=== PATIENT | male | born 1985 | race Caucasian/White ===

== ENCOUNTER 2016-08-09 19:36 | Emergency (ER) | payer MEDICAID ==
[~2016-08-09] VITALS: Ht 175.3 cm; Wt 77.1 kg
[2016-08-09 19:43] VITALS: BP 134/84
--- NOTE | 2016-08-09 19:46 | NUR ---
AMBULATED TO ER BED 2
--- NOTE | 2016-08-09 19:57 | NUR ---
PATIENT PRESENTS TO ED WITH LOWER BACK PAIN SINCE YESTERDAY . PT STATES HISTORY OF BRAIN SURGERY X7 SINCE AGE 11 YEARS OLD . DENIES N/V/D; SKIN IS PINK/WARM/DRY; AAOX4 WITH EVEN AND STEADY GAIT; LUNGS CLEAR BL; HR EVEN AND REGULAR; PT DENIES ANY FEVER, CP, SOB, OR COUGH AT THIS TIME; PATIENT STATES PAIN OF 10/10 AT THIS TIME; VSS; PATIENT POSITIONED FOR COMFORT; HOB ELEVATED; BEDRAILS UP X2; BED DOWN. ER MD MADE AWARE OF PT STATUS. SISTER AT BEDSIDE.
[2016-08-09] MEDS ORDERED: KETOROLAC 30 MG/ML VIAL IM ONE (20:15)
[2016-08-09] MEDS ORDERED: HYDROcodone/APAP 5/325 MG 1 TAB TAB PO ONE (20:15)
[2016-08-09] MEDS ORDERED: DIAZEPAM 5 MG TAB PO ONE (20:15)
[2016-08-09 20:51] VITALS: BP 134/84
--- NOTE | 2016-08-09 20:51 | NUR ---
Patient discharged with v/s stable. Written and verbal after care instructions given and explained. Patient alert, oriented and verbalized understanding of instructions. Ambulatory with steady gait. All questions addressed prior to discharge. ID band removed. Patient advised to follow up with PMD. Rx of VALIUM, NORCO, AND NAPROSYN given. Patient educated on indication of medication including possible reaction and side effects. Opportunity to ask questions provided and answered. PT VERBALIZED THAT FRIEND WOULD BE DRIVING HIM HOME FROM HOSPITAL AT THIS TIME.
== END 2016-08-09 20:51 | disposition home or self-care (01) ==
LOC: MED 19:39
DX: S39.012A Strain of muscle, fascia and tendon of lower back, initial encounter (principal); F17.210 Nicotine dependence, cigarettes, uncomplicated; Z98.890 Other specified postprocedural states; X50.0XXA Overexertion from strenuous movement or load, initial encounter; Y93.89 Activity, other specified; Y92.89 Other specified places as the place of occurrence of the external cause; Y99.8 Other external cause status
CPT/HCPCS: 96372; 99283; J1885

== ENCOUNTER 2016-08-21 21:50 | Emergency (ER) | payer MEDICAID ==
[~2016-08-21] VITALS: Ht 175.3 cm; Wt 77.1 kg
[2016-08-21 21:55] VITALS: BP 129/77
--- NOTE | 2016-08-21 22:57 | NUR ---
PT TAKEN TO BED 2
--- NOTE | 2016-08-21 23:03 | NUR ---
Dr. Gómez evaluating patient at bedside.
[2016-08-21] MEDS ORDERED: MORPHINE SULFATE 10 MG/ML SYR IM ONE (23:05)
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
[2016-08-22] MEDS ORDERED: HYDROmorphone 1 MG/ML AMP IM ONE (00:10)
--- NOTE | 2016-08-22 00:52 | NUR ---
Patient discharged with v/s stable. Written and verbal after care instructions given and explained. Patient alert, oriented and verbalized understanding of instructions. Ambulatory with steady gait. All questions addressed prior to discharge. ID band removed. Patient advised to follow up with PMD. Rx of NAPROSYN 500 MG given. Patient educated on indication of medication including possible reaction and side effects. Opportunity to ask questions provided and answered.
[2016-08-22 00:53] VITALS: BP 125/71
== END 2016-08-22 00:52 | disposition home or self-care (01) ==
LOC: MED 21:50
DX: S39.012A Strain of muscle, fascia and tendon of lower back, initial encounter (principal); R03.0 Elevated blood-pressure reading, without diagnosis of hypertension; E11.9 Type 2 diabetes mellitus without complications; X50.0XXA Overexertion from strenuous movement or load, initial encounter; Y93.89 Activity, other specified; Y92.89 Other specified places as the place of occurrence of the external cause; Y99.8 Other external cause status
CPT/HCPCS: 96372; 99284; J1170; J2270

== ENCOUNTER 2017-02-23 23:43 | Emergency (ER) | payer MEDICAID ==
[~2017-02-23] VITALS: Ht 175.3 cm; Wt 73.0 kg
[2017-02-23 23:56] VITALS: BP 135/84
--- NOTE | 2017-02-24 00:13 | NUR ---
Dr. Layton evaluating patient
[2017-02-24] MEDS ORDERED: CYCLOBENZAPRINE 10 MG TAB PO ONE (00:15)
[2017-02-24] MEDS ORDERED: KETOROLAC 30 MG/ML VIAL IM ONE (00:15)
[2017-02-24] MEDS ORDERED: HYDROcodone/APAP 5/325 MG 1 TAB TAB PO ONE ×2 (00:50→01:35)
[2017-02-24 01:45] VITALS: BP 127/73
--- NOTE | 2017-02-24 01:45 | NUR ---
Patient discharged with v/s stable. Written and verbal after care instructions given and explained. Patient alert, oriented and verbalized understanding of instructions. Ambulatory with steady gait. All questions addressed prior to discharge. ID band removed. Patient advised to follow up with PMD. Rx of Flexeril and Naprosyn given. Patient educated on indication of medication including possible reaction and side effects. Opportunity to ask questions provided and answered.
== END 2017-02-24 01:45 | disposition home or self-care (01) ==
LOC: MED 23:43
DX: M54.5 Low back pain (principal); M62.830 Muscle spasm of back
CPT/HCPCS: 96372; 99284; J1885

== ENCOUNTER 2018-10-30 01:35 | Emergency (ER) | payer MEDICAID, OTHER ==
[~2018-10-30] VITALS: Ht 175.3 cm; Wt 68.0 kg
[2018-10-30 01:42] VITALS: BP 127/81
--- NOTE | 2018-10-30 01:51 | NUR ---
PT AMBULATED BACK TO LOBBYBETTE
--- NOTE | 2018-10-30 02:45 | NUR ---
PT AMBULATED TO ROOM 11.
--- NOTE | 2018-10-30 02:48 | NUR ---
32 Y/O M PRESENTED TO ED WITH C/O PAINFUL CYST ON L UPPER POSTERIOR SHOULDER. PER PT HAS HAD CYST FOR 6-7 MONTHS BUT YESTERDAY MORNING HAD WORSENING PAIN. CYST RUPTURED THIS MORNING, YELLOW PUS DISCHARGE. 7/10 PAIN, THROBBING AND CONTINUOUS. ERYTHEMA NOTED TO L UPPER SHOULDER. SCANT PUS NOTED. ERMD NOTIFIED. WILL CONTINUE TO MONITOR.
--- NOTE | 2018-10-30 03:30 | NUR ---
PT EXPERIENCING 7/10 PAIN TO L SHOULDER. DR CARTER MADE AWARE.
[2018-10-30] MEDS ORDERED: KETOROLAC 60 MG/2 ML VIAL IM ONE (03:40)
[2018-10-30 03:46] VITALS: BP 121/82
--- NOTE | 2018-10-30 04:32 | NUR ---
DR. CARTER, BEDSIDE EVALUATING PT
--- NOTE | 2018-10-30 04:45 | NUR ---
Patient discharged with v/s stable. Written and verbal after care instructions given and explained. Patient alert, oriented and verbalized understanding of instructions. Ambulatory with steady gait. All questions addressed prior to discharge. ID band removed. Patient advised to follow up with PMD. Rx of Bactrim, [place], Kelfex, Motrin, and Prednisone given. Patient educated on indication of medication including possible reaction and side effects. Opportunity to ask questions provided and answered.
== END 2018-10-30 04:45 | disposition home or self-care (01) ==
LOC: MED 01:35
DX: L02.212 Cutaneous abscess of back [any part, except buttock and flank] (principal); L03.312 Cellulitis of back [any part except buttock and flank]; F17.200 Nicotine dependence, unspecified, uncomplicated
CPT/HCPCS: 99283; J1885

== ENCOUNTER 2018-11-09 00:10 | Emergency (ER) | payer OTHER ==
[~2018-11-09] VITALS: Ht 175.3 cm; Wt 74.8 kg
[2018-11-09 00:14] VITALS: BP 120/77
--- NOTE | 2018-11-09 00:18 | NUR ---
PT TAKEN TO BED 3
[2018-11-09] MEDS ORDERED: KETOROLAC 30 MG/ML VIAL IM ONE (01:00)
--- NOTE | 2018-11-09 01:15 | NUR ---
PT REFUSED TORADOL BECAUSE IT DOESN'T WORK FOR HIS PAIN.
[2018-11-09] MEDS ORDERED: fentaNYL 0.05 MG/ML VIAL NS ONE (01:50)
[2018-11-09 02:30] VITALS: BP 118/65
--- NOTE | 2018-11-09 02:30 | NUR ---
Patient discharged with v/s stable. Written and verbal after care instructions given and explained. Patient alert, oriented and verbalized understanding of instructions. Ambulatory with steady gait. All questions addressed prior to discharge. ID band removed. Patient advised to follow up with PMD. Rx of Fioricet given. Patient educated on indication of medication including possible reaction and side effects. Opportunity to ask questions provided and answered.
== END 2018-11-09 02:30 | disposition home or self-care (01) ==
LOC: MED 00:10
DX: R51 Headache (principal); G43.909 Migraine, unspecified, not intractable, without status migrainosus; F17.200 Nicotine dependence, unspecified, uncomplicated; Z48.01 Encounter for change or removal of surgical wound dressing; Z98.890 Other specified postprocedural states
CPT/HCPCS: 99283; J3010

== ENCOUNTER 2019-07-07 23:08 | Emergency (ER) | payer OTHER ==
[~2019-07-07] VITALS: Ht 175.3 cm; Wt 77.1 kg
[2019-07-07 23:20] VITALS: BP 129/81
== END 2019-07-07 23:42 | disposition home or self-care (01) ==
LOC: MED 23:08
DX: K08.89 Other specified disorders of teeth and supporting structures (principal)
CPT/HCPCS: 99283

== ENCOUNTER 2019-08-08 07:28 | Emergency (ER) | payer OTHER ==
[~2019-08-08] VITALS: Ht 180.3 cm; Wt 81.6 kg
[2019-08-08 07:38] VITALS: BP 137/72
--- NOTE | 2019-08-08 07:38 | NUR ---
Patient ambulated to bed 4. RN evaluating patient at bedside.
--- NOTE | 2019-08-08 07:41 | NUR ---
33 Y/O M C/C RIGHT EYE PAIN RADIATING TO RIGHT JAW X 3 DAYS. PER PT IT HAS PROGRESSIVELY GETTING WORSE, 8/10 THROBBING, PRESSURE PAIN. HAS USED ORAL GEL WITH NO RELIEF. PT NKA. 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 NO RX. NO N/V/D. SIDE RAIL X1. NEURO WDL. PUPILS PERRLA.
--- NOTE | 2019-08-08 07:51 | NUR ---
Dr. Beauchamp is evaluating the patient at bedside.
[2019-08-08] MEDS ORDERED: KETOROLAC 60 MG/2 ML VIAL IM ONE (08:00)
[2019-08-08 08:22] VITALS: BP 137/72
--- NOTE | 2019-08-08 08:22 | NUR ---
Patient discharged with v/s stable. Written and verbal after care instructions given and explained. Patient alert, oriented and verbalized understanding of instructions. Ambulatory with steady gait. All questions addressed prior to discharge. ID band removed. Patient advised to follow up with PMD. Rx of MOTRIN,NORCO given. Patient educated on indication of medication including possible reaction and side effects. Opportunity to ask questions provided and answered.
== END 2019-08-08 08:22 | disposition home or self-care (01) ==
LOC: MED 07:28
DX: K08.89 Other specified disorders of teeth and supporting structures (principal); F17.200 Nicotine dependence, unspecified, uncomplicated; E11.9 Type 2 diabetes mellitus without complications
CPT/HCPCS: 96372; 99283; J1885

== ENCOUNTER 2019-11-27 22:44 | Emergency (ER) | payer OTHER ==
[~2019-11-27] VITALS: Ht 175.3 cm; Wt 77.1 kg
[2019-11-27 22:48] VITALS: BP 114/78
--- NOTE | 2019-11-27 22:58 | NUR ---
PT AMBULATED TO BED 7 WITH STEADY GAIT
[2019-11-27] MEDS ORDERED: KETOROLAC 30 MG/ML VIAL IM ONE (23:10)
[2019-11-27] MEDS ORDERED: PENICILLIN V POTASSIUM 250 MG TAB PO ONE (23:10)
--- NOTE | 2019-11-27 23:15 | NUR ---
33 Y/O MALE PRESENTED TO ED C/O R JAW PAIN X 3 DAYS. PT STATES PAIN AND SWELLING IN R SIDE OF JAW. PT STATES HE TOOK 800MG IBUPROFEN AT 2230 W/ NO RELIFE. PT HAS BEEN TRYING TO GET INTO THE DR. BUT CANNOT GET INTO AN APPOINTMENT UNTIL 12/12 SO HE WAS TOLD TO COME TO THE ER FOR THE PAIN AND SWELLING. OBSERVED SWELLING ON R JAW. PT DENIES SOB, N/V/D/F. PT SITTING IN CHAIR. NAD NOTED, VSS. PMH: BRAIN SURGERY MEHDI
[2019-11-27] MEDS ORDERED: IBUPROFEN 800 MG TAB PO ONE (23:40)
[2019-11-27 23:45] VITALS: BP 114/78
--- NOTE | 2019-11-27 23:45 | NUR ---
Patient discharged with v/s stable. Written and verbal after care instructions given and explained. Patient alert, oriented and verbalized understanding of instructions. Ambulatory with steady gait. All questions addressed prior to discharge. ID band removed. Patient advised to follow up with PMD. Rx of IBUPROFEN 600MG AND PENICILLIN given. Patient educated on indication of medication including possible reaction and side effects. Opportunity to ask questions provided and answered.
== END 2019-11-27 23:45 | disposition home or self-care (01) ==
LOC: MED 22:44
DX: J02.0 Streptococcal pharyngitis (principal); E11.9 Type 2 diabetes mellitus without complications; Z98.890 Other specified postprocedural states
CPT/HCPCS: 99283; J1885

== ENCOUNTER 2020-05-01 15:43 | Emergency (ER) | payer OTHER, SELFPAY ==
[~2020-05-01] VITALS: Ht 175.3 cm; Wt 74.8 kg
[2020-05-01 16:01] VITALS: BP 110/77
--- NOTE | 2020-05-01 16:11 | NUR ---
PATIENT PRESENTS TO ED WITH SORE THROAT X2D. PT STATES THIS HAPPENS EVERY YEAR WITH HIS THROAT AND THAT HE JUST WANTS TO BE COVID TESTED. DENIES N/V/D; SKIN IS PINK/WARM/DRY; AAOX4 WITH EVEN AND STEADY GAIT; LUNGS CLEAR BL; HR EVEN AND REGULAR; PT DENIES ANY FEVER, CP, SOB, OR COUGH AT THIS TIME; PATIENT STATES PAIN OF 0/10 AT THIS TIME; VSS; PATIENT POSITIONED FOR COMFORT; HOB ELEVATED; BEDRAILS UP X2; BED DOWN. ER MD MADE AWARE OF PT STATUS.
[2020-05-01 16:40] VITALS: BP 110/77
--- NOTE | 2020-05-01 16:40 | NUR ---
Patient discharged with v/s stable. Written and verbal after care instructions given and explained. Patient verbalized understanding. Ambulatory with steady gait. All questions addressed prior to discharge. Advised to follow up with PMD.
== END 2020-05-01 16:40 | disposition home or self-care (01) ==
LOC: MED 15:43
DX: B34.9 Viral infection, unspecified (principal); Z20.828 Contact with and (suspected) exposure to other viral communicable diseases; E11.9 Type 2 diabetes mellitus without complications; F17.210 Nicotine dependence, cigarettes, uncomplicated
CPT/HCPCS: 99283; U0003

== ENCOUNTER 2020-08-16 06:00 | Emergency (ER) | payer OTHER, SELFPAY ==
[~2020-08-16] VITALS: Ht 177.8 cm; Wt 74.8 kg
[2020-08-16 06:05] VITALS: BP 120/79
--- NOTE | 2020-08-16 06:05 | NUR ---
TO BED AMBULATORY
--- NOTE | 2020-08-16 06:26 | NUR ---
Dr. Cannon examining patient.
--- NOTE | 2020-08-16 06:29 | NUR ---
PT IS 34 Y MALE PRESENTS TO THE ED WITH LEFT SHARP EAR PAIN OF 7/10 THAT RADIATES TO JAW, EYE, AND LEFT SIDE OF THE HEAD. LITTLE REDNESS IN THE TYMPANIC MEMBRANE NOTED SURGICAL HX: 7 BRAIN SURGERIES NKA
--- NOTE | 2020-08-16 06:40 | NUR ---
PT STATED THAT HE TOOK IBUPROFEN (OTC) AND HAS NO PAIN RELIEF
[2020-08-16] MEDS ORDERED: ACET-9527 PO (07:03)
[2020-08-16] MEDS ORDERED: OFLO5SOL27 LEFT EAR (07:03)
--- NOTE | 2020-08-16 07:08 | NUR ---
REPORT GIVEN TO MONET CLEARY FOR CONTINUITY OF CARE
[2020-08-16 07:22] VITALS: BP 120/79
--- NOTE | 2020-08-16 07:23 | NUR ---
Patient discharged with v/s stable. Written and verbal after care instructions given and explained. Patient alert, oriented and verbalized understanding of instructions. Ambulatory with steady gait. All questions addressed prior to discharge. ID band removed. Patient advised to follow up with PMD. Rx of NORCO, FLOXIN given. Patient educated on indication of medication including possible reaction and side effects. Opportunity to ask questions provided and answered.
== END 2020-08-16 07:23 | disposition home or self-care (01) ==
LOC: MED 06:00
DX: H60.8X2 Other otitis externa, left ear (principal); E11.9 Type 2 diabetes mellitus without complications; Z79.899 Other long term (current) drug therapy
CPT/HCPCS: 99283

== ENCOUNTER 2020-09-29 05:14 | Emergency (ER) | payer OTHER ==
[~2020-09-29] VITALS: Ht 177.8 cm; Wt 77.1 kg
[~2020-09-29 05:14] MED LIST: ACET-9527 PO; OFLO5SOL27 LEFT EAR
[2020-09-29 05:19] VITALS: BP 130/74
--- NOTE | 2020-09-29 05:28 | NUR ---
PT AMBULATED TO BED 05, STEADY GAIT
--- NOTE | 2020-09-29 05:44 | NUR ---
PATIENT BIB SELF FOR C/O 12/15 LEFT EAR PAIN X 6 HOURS. A & O X4. PATIENT STATES THE PAIN RADIATES TO LEFT EYE AND LEFT JAW, STATING "IT MAKES IT HARD TO EAT." PATIENT REPORTS TAKING IBUPROFEN AT HOME WITH NO RELIEF. NO NOTED SWELLING TO THE FACE. LEFT EAR NOTED WITH REDNESS AT SITE. PATIENT DENIES SOB, CP, FEVER, CHILLS. SEE COMPLETE ASSESSMENT FOR FURTHER DETAILS. MED HX: DENIES ALLERGIES: NKA
--- NOTE | 2020-09-29 05:48 | NUR ---
ERMD AT BEDSIDE.
[2020-09-29] MEDS ORDERED: FLONAS NS (05:56)
[2020-09-29] MEDS ORDERED: METH4TAB1 PO (05:56)
[2020-09-29 06:15] VITALS: BP 130/74
--- NOTE | 2020-09-29 06:15 | NUR ---
Patient discharged with v/s stable. Written and verbal after care instructions given and explained. Patient alert, oriented and verbalized understanding of instructions. Ambulatory with steady gait. All questions addressed prior to discharge. ID band removed. Patient advised to follow up with PMD. Rx of FLUTICASONE PROPIONATE AND METHYLPREDNISOLONE given. Patient educated on indication of medication including possible reaction and side effects. Opportunity to ask questions provided and answered.
== END 2020-09-29 06:15 | disposition home or self-care (01) ==
LOC: MED 05:14
DX: H69.92 Unspecified Eustachian tube disorder, left ear (principal); E11.9 Type 2 diabetes mellitus without complications; F17.210 Nicotine dependence, cigarettes, uncomplicated; Z79.899 Other long term (current) drug therapy
CPT/HCPCS: 99283

== ENCOUNTER 2020-12-26 12:41 | Emergency (ER) | payer OTHER ==
[~2020-12-26] VITALS: Ht 175.3 cm; Wt 74.0 kg
[~2020-12-26 12:41] MED LIST changes: +FLONAS NS; +METH4TAB1 PO
[2020-12-26 13:02] VITALS: BP 130/86
[2020-12-26] MEDS ORDERED: LIDOCAINE 2% 1000 MG/50 ML VIAL INJ ONE (13:20)
--- NOTE | 2020-12-26 13:27 | NUR ---
35/M presents to ED with c/o left ear and face pain. Patient states he has been having 10/10 sharp left ear pain radiating to his face and head. Patient states face and ear is tender to touch, reports taking Ibuprofen yesterday with no relief. Patient states he saw his doctor for the same symtoms and was given an MRI, stating "I'm waiting for a referral to a specialist." Patient has extensive history with multiple brain surgeries and a shunt placed on left side of head. Dr. Chela english.
--- NOTE | 2020-12-26 13:41 | NUR ---
Patient returned from CT scan. RN reevaluating the patient at bedside.
[2020-12-26] MEDS ORDERED: HYDROcodone/APAP 7.5/325 MG 1 TAB PO ONE (14:00)
[2020-12-26] MEDS ORDERED: KETOROLAC 30 MG/ML VIAL IM ONE (15:00)
[2020-12-26] MEDS ORDERED: AMOXICILLIN 500 MG CAP PO ONE (15:00)
[2020-12-26] MEDS ORDERED: AMOX-999 PO (15:01)
[2020-12-26] MEDS ORDERED: IBUP-2218 PO (15:01)
[2020-12-26 15:16] VITALS: BP 130/86
--- NOTE | 2020-12-26 15:16 | NUR ---
Patient discharged with v/s stable. Written and verbal after care instructions given and explained. Patient alert, oriented and verbalized understanding of instructions. Ambulatory with steady gait. All questions addressed prior to discharge. ID band removed. Patient advised to follow up with PMD. Rx of Amoxicillin and Ibuprofen given. Patient educated on indication of medication including possible reaction and side effects. Opportunity to ask questions provided and answered.
== END 2020-12-26 15:16 | disposition home or self-care (01) ==
LOC: MED 12:41
DX: K04.7 Periapical abscess without sinus (principal); E11.9 Type 2 diabetes mellitus without complications; Z98.890 Other specified postprocedural states; Z79.899 Other long term (current) drug therapy
CPT/HCPCS: 70450; 70486; 99285; J2001; J1885

== ENCOUNTER 2023-07-11 05:32 | Emergency (ER) | payer OTHER ==
[~2023-07-11] VITALS: Ht 175.3 cm; Wt 88.5 kg
[~2023-07-11 05:32] MED LIST changes: +AMOX-999 PO; +IBUP-2218 PO
[2023-07-11 05:35] VITALS: BP 128/73; PULSE 95; RESP 20; TEMP 97.8; O2SAT 98
== END 2023-07-11 06:18 | disposition left against medical advice (07) ==
LOC: MED 05:32
DX: Z00.8 Encounter for other general examination (principal); Z53.21 Procedure and treatment not carried out due to patient leaving prior to being seen by health care provider
CPT/HCPCS: 99281